=== PATIENT | female | born 1960 | race Asian ===

== ENCOUNTER → 2017-07-09 | Outpatient (CLI) | payer BC ==
[2017-07-09 10:37] LABS: BASOPHILS % 1.3 % (0.0-2.0); EOSINOPHILS % 1.9 % (0.0-5.0); HEMATOCRIT. 42.9 % (36.0-48.0); HEMOGLOBIN. 13.2 g/dL (12.0-16.0); LYMPHOCYTES % 34.5 % (20.0-50.0); MEAN CORPUSCULAR HEMOGLOBIN 19.8 pg (28.0-32.0); MEAN CORPUSCULAR VOLUME 64.3 fL (81.0-99.0); MEAN PLATELET VOLUME 7.6 fl (7.4-10.4); MONOCYTES % 7.7 % (2.0-8.0); NEUTROPHILS % 54.6 % (40.0-76.0); PLATELET 200 x1000/uL (130-400); RED BLOOD CELL COUNT 6.67 mill/uL (4.2-5.4); RED CELL DISTRIBUTION WIDTH 15.3 % (11.6-14.6)
[2017-07-09 10:43] LABS: CLARITY URINE CLEAR (CLEAR); COLOR URINE YELLOW (YELLOW); KETONES URINE NEGATIVE (NEGATIVE); LEUKOCYTE ESTERASE URINE NEGATIVE (NEGATIVE); NITRITE URINE NEGATIVE (NEGATIVE); OCCULT BLOOD URINE TRACE (NEGATIVE); PROTEIN URINE NEGATIVE (NEGATIVE); SPECIFIC GRAVITY URINE 1.013 (1.005-1.030); UROBILINOGEN URINE 0.2 E.U./dL (0.2-1.0)
[2017-07-09 11:17] LABS: CHLORIDE 106 mEq/L (98-107)
[2017-07-09 11:35] LABS: LDL CHOLESTEROL 107 mg/dL (5-100)
[2017-07-09 11:36] LABS: HDL CHOLESTEROL 94 mg/dL (40-59); T4 FREE 0.83 ng/dL (0.76-1.46)
[2017-07-09 13:32] LABS: PLATELET ESTIMATE NORMAL
== END | disposition home or self-care (01) ==
LOC: LAB 09:46
PROVIDERS: ATTEND Family Medicine
DX: I10 Essential (primary) hypertension (principal); E03.9 Hypothyroidism, unspecified; R79.89 Other specified abnormal findings of blood chemistry
CPT/HCPCS: 36415; 80053; 80061; 81003; 83036; 84439; 84443; 84481; 85025; 86376

== ENCOUNTER → 2017-09-21 | Outpatient (CLI) | payer BC | END | disposition home or self-care (01) | LOC: MAMMO 13:28 | PROVIDERS: ATTEND Family Medicine | DX: Z12.31 Encounter for screening mammogram for malignant neoplasm of breast (principal) | CPT/HCPCS: 77067 ==

== ENCOUNTER → 2017-09-24 | Outpatient (CLI) | payer BC | END | disposition home or self-care (01) | LOC: US 13:19 | PROVIDERS: ATTEND Family Medicine | DX: N28.1 Cyst of kidney, acquired (principal) | CPT/HCPCS: 76770 ==

== ENCOUNTER → 2018-06-24 | Outpatient (CLI) | payer BC | END | disposition home or self-care (01) | LOC: US 12:41 | PROVIDERS: ATTEND Physician Assistant | DX: N28.1 Cyst of kidney, acquired (principal) | CPT/HCPCS: 76770 ==

== ENCOUNTER → 2018-12-31 | Outpatient (CLI) | payer BC ==
[2018-12-31 09:41] LABS: BASOPHILS % 1.2 % (0.0-2.0); EOSINOPHILS % 4.5 % (0.0-5.0); HEMATOCRIT. 37.6 % (36.0-48.0); HEMOGLOBIN. 11.6 g/dL (12.0-16.0); LYMPHOCYTES % 33.8 % (20.0-50.0); MEAN CORPUSCULAR HEMOGLOBIN 19.8 pg (28.0-32.0); MEAN CORPUSCULAR VOLUME 64.1 fL (81.0-99.0); MEAN PLATELET VOLUME 7.7 fl (7.4-10.4); MONOCYTES % 10.7 % (2.0-8.0); NEUTROPHILS % 49.8 % (40.0-76.0); PLATELET 174 x1000/uL (130-400); RED BLOOD CELL COUNT 5.86 mill/uL (4.2-5.4); RED CELL DISTRIBUTION WIDTH 15.5 % (11.6-14.6)
[2018-12-31 10:00] LABS: CHLORIDE 109 mEq/L (98-107); CLARITY URINE CLEAR (CLEAR); COLOR URINE YELLOW (YELLOW); KETONES URINE NEGATIVE (NEGATIVE); LEUKOCYTE ESTERASE URINE NEGATIVE (NEGATIVE); NITRITE URINE NEGATIVE (NEGATIVE); OCCULT BLOOD URINE 1+ (NEGATIVE); PH URINE 6.5 (4.5-8.0); PROTEIN URINE NEGATIVE (NEGATIVE); SPECIFIC GRAVITY URINE 1.013 (1.005-1.030); UROBILINOGEN URINE 0.2 E.U./dL (0.2-1.0)
[2018-12-31 10:10] LABS: LDL CHOLESTEROL 103 mg/dL (5-100)
[2018-12-31 10:11] LABS: T4 FREE 0.78 ng/dL (0.76-1.46)
[2018-12-31 10:12] LABS: HDL CHOLESTEROL 84 mg/dL (40-59)
[2018-12-31 10:35] LABS: VITAMIN B12 SERUM 1833 pg/mL (211-911)
[2018-12-31 13:29] LABS: PLATELET ESTIMATE NORMAL
[2019-01-03 04:11] LABS: VITAMIN D 25-OH 75.5 ng/mL (30.0-100.0)
== END | disposition home or self-care (01) ==
LOC: LAB 09:02
PROVIDERS: ATTEND Family Medicine
DX: E03.9 Hypothyroidism, unspecified (principal); R53.83 Other fatigue
CPT/HCPCS: 36415; 80061; 81003; 82306; 82607; 83036; 84439; 84443; 84481; 86376

== ENCOUNTER → 2019-04-12 | Outpatient (CLI) | payer BC ==
[2019-04-12 14:53] LABS: CLARITY URINE CLEAR (CLEAR); COLOR URINE YELLOW (YELLOW); KETONES URINE NEGATIVE (NEGATIVE); LEUKOCYTE ESTERASE URINE NEGATIVE (NEGATIVE); NITRITE URINE NEGATIVE (NEGATIVE); OCCULT BLOOD URINE TRACE (NEGATIVE); PH URINE 7.5 (4.5-8.0); PROTEIN URINE NEGATIVE (NEGATIVE); SPECIFIC GRAVITY URINE 1.004 (1.005-1.030); UROBILINOGEN URINE 0.2 E.U./dL (0.2-1.0)
== END | disposition home or self-care (01) ==
LOC: RAD 14:18
PROVIDERS: ATTEND Family Medicine
DX: R31.29 Other microscopic hematuria (principal)
CPT/HCPCS: 81003

== ENCOUNTER → 2019-07-07 | Outpatient (CLI) | payer BC ==
[2019-07-07 08:12] LABS: CLARITY URINE CLEAR (CLEAR); COLOR URINE YELLOW (YELLOW); KETONES URINE NEGATIVE (NEGATIVE); LEUKOCYTE ESTERASE URINE NEGATIVE (NEGATIVE); NITRITE URINE NEGATIVE (NEGATIVE); OCCULT BLOOD URINE TRACE (NEGATIVE); PROTEIN URINE NEGATIVE (NEGATIVE); SPECIFIC GRAVITY URINE 1.006 (1.005-1.030); UROBILINOGEN URINE 0.2 E.U./dL (0.2-1.0)
[2019-07-07 08:28] LABS: BASOPHILS % 1.7 % (0.0-2.0); EOSINOPHILS % 4.1 % (0.0-5.0); HEMATOCRIT. 37.1 % (36.0-48.0); HEMOGLOBIN. 11.8 g/dL (12.0-16.0); LYMPHOCYTES % 39.5 % (20.0-50.0); MEAN CORPUSCULAR HEMOGLOBIN 20.3 pg (28.0-32.0); MEAN CORPUSCULAR VOLUME 63.9 fL (81.0-99.0); MEAN PLATELET VOLUME 7.7 fl (7.4-10.4); MONOCYTES % 9.3 % (2.0-8.0); NEUTROPHILS % 45.4 % (40.0-76.0); PLATELET 198 x1000/uL (130-400); RED BLOOD CELL COUNT 5.81 mill/uL (4.2-5.4); RED CELL DISTRIBUTION WIDTH 15.8 % (11.6-14.6)
[2019-07-07 08:49] LABS: CHLORIDE 109 mEq/L (98-107)
[2019-07-07 08:56] LABS: LDL CHOLESTEROL 102 mg/dL (5-100)
[2019-07-07 08:58] LABS: HDL CHOLESTEROL 93 mg/dL (40-59); T4 FREE 0.77 ng/dL (0.76-1.46)
[2019-07-07 09:20] LABS: VITAMIN B12 SERUM 1692 pg/mL (211-911)
[2019-07-07 14:11] LABS: PLATELET ESTIMATE NORMAL
[2019-07-08 04:06] LABS: VITAMIN D 25-OH 72.6 ng/mL (30.0-100.0)
== END | disposition home or self-care (01) ==
LOC: LAB 07:51
PROVIDERS: ATTEND Family Medicine
DX: R53.83 Other fatigue (principal); E03.9 Hypothyroidism, unspecified
CPT/HCPCS: 36415; 80053; 80061; 81003; 82306; 82607; 83036; 84439; 84443; 84481; 85025; 86376

== ENCOUNTER → 2019-11-21 | Outpatient (CLI) | payer BC | END | disposition home or self-care (01) | LOC: LAB 10:45 | PROVIDERS: ATTEND Family Medicine | DX: Z11.59 Encounter for screening for other viral diseases (principal) | CPT/HCPCS: C9803; U0003 ==

== ENCOUNTER → 2019-11-23 | Outpatient (CLI) | payer BC | END | disposition home or self-care (01) | LOC: MAMMO 10:28 | PROVIDERS: ATTEND Family Medicine | DX: Z12.31 Encounter for screening mammogram for malignant neoplasm of breast (principal) | CPT/HCPCS: 77067 ==

== ENCOUNTER → 2019-12-08 | Outpatient (CLI) | payer BC ==
[2019-12-08 09:41] LABS: T4 FREE 0.8 ng/dL (0.76-1.46)
== END | disposition home or self-care (01) ==
LOC: LAB 08:52
PROVIDERS: ATTEND Family Medicine
DX: E03.9 Hypothyroidism, unspecified (principal); R73.03 Prediabetes
CPT/HCPCS: 36415; 83036; 84439; 84443; 84481; 86376

== ENCOUNTER → 2019-12-20 | Outpatient (CLI) | payer BC | END | disposition home or self-care (01) | LOC: LAB 10:39 | PROVIDERS: ATTEND Family Medicine | DX: Z20.828 Contact with and (suspected) exposure to other viral communicable diseases (principal) | CPT/HCPCS: C9803; U0003 ==

== ENCOUNTER → 2019-12-22 | Outpatient (CLI) | payer BC | END | disposition home or self-care (01) | LOC: US 10:45 | PROVIDERS: ATTEND Family Medicine | DX: E03.9 Hypothyroidism, unspecified (principal) | CPT/HCPCS: 76536 ==

== ENCOUNTER → 2020-04-29 | Outpatient (CLI) | payer BC ==
[2020-04-29 10:11] LABS: CLARITY URINE CLEAR (CLEAR); COLOR URINE YELLOW (YELLOW); KETONES URINE NEGATIVE (NEGATIVE); LEUKOCYTE ESTERASE URINE NEGATIVE (NEGATIVE); NITRITE URINE NEGATIVE (NEGATIVE); OCCULT BLOOD URINE TRACE (NEGATIVE); PH URINE 5.5 (4.5-8.0); PROTEIN URINE NEGATIVE (NEGATIVE); SPECIFIC GRAVITY URINE 1.014 (1.005-1.030); UROBILINOGEN URINE 0.2 E.U./dL (0.2-1.0)
[2020-04-29 10:15] LABS: BASOPHILS % 1.4 % (0.0-2.0); EOSINOPHILS % 3.1 % (0.0-5.0); HEMATOCRIT. 37.7 % (36.0-48.0); HEMOGLOBIN. 11.6 g/dL (12.0-16.0); MEAN CORPUSCULAR HEMOGLOBIN 19.6 pg (28.0-32.0); MEAN CORPUSCULAR VOLUME 63.5 fL (81.0-99.0); MEAN PLATELET VOLUME 7.8 fl (7.4-10.4); MONOCYTES % 7.2 % (2.0-8.0); NEUTROPHILS % 47.3 % (40.0-76.0); PLATELET 195 x1000/uL (130-400); RED BLOOD CELL COUNT 5.94 mill/uL (4.2-5.4); RED CELL DISTRIBUTION WIDTH 15.2 % (11.6-14.6)
[2020-04-29 10:19] LABS: CHLORIDE 111 mEq/L (98-107)
[2020-04-29 10:29] LABS: LDL CHOLESTEROL 98 mg/dL (5-100)
[2020-04-29 10:30] LABS: HDL CHOLESTEROL 104 mg/dL (40-59)
[2020-04-29 11:46] LABS: PLATELET ESTIMATE NORMAL
== END | disposition home or self-care (01) ==
LOC: LAB 09:28
PROVIDERS: ATTEND Family Medicine
DX: I10 Essential (primary) hypertension (principal); K21.9 Gastro-esophageal reflux disease without esophagitis; E03.9 Hypothyroidism, unspecified
CPT/HCPCS: 36415; 80053; 80061; 81003; 83036; 84436; 84443; 84481; 85025

== ENCOUNTER → 2020-06-21 | Outpatient (CLI) | payer BC ==
[~2020-06-21] MED LIST: ALBUTEROL (0.083%) 2.5MG/3ML NEB ONE
== END | disposition home or self-care (01) ==
LOC: US 10:51
PROVIDERS: ATTEND Family Medicine
DX: N28.1 Cyst of kidney, acquired (principal); K76.89 Other specified diseases of liver; K21.00 Gastro-esophageal reflux disease with esophagitis, without bleeding; R73.03 Prediabetes; E03.9 Hypothyroidism, unspecified; F43.0 Acute stress reaction; R06.02 Shortness of breath; Z68.21 Body mass index [BMI] 21.0-21.9, adult
CPT/HCPCS: 76770; 94060; 94727; 94729

== ENCOUNTER → 2020-11-22 | Outpatient (CLI) | payer BC ==
[2020-11-22 07:58] LABS: CLARITY URINE CLEAR (CLEAR); COLOR URINE YELLOW (YELLOW); KETONES URINE NEGATIVE (NEGATIVE); LEUKOCYTE ESTERASE URINE NEGATIVE (NEGATIVE); NITRITE URINE NEGATIVE (NEGATIVE); OCCULT BLOOD URINE TRACE (NEGATIVE); PH URINE 6.5 (4.5-8.0); PROTEIN URINE NEGATIVE (NEGATIVE); SPECIFIC GRAVITY URINE 1.006 (1.005-1.030); UROBILINOGEN URINE 0.2 E.U./dL (0.2-1.0)
[2020-11-22 08:06] LABS: BASOPHILS % 0.5 % (0.0-2.0); EOSINOPHILS % 3.9 % (0.0-5.0); HEMATOCRIT. 38.2 % (36.0-48.0); HEMOGLOBIN. 11.9 g/dL (12.0-16.0); LYMPHOCYTES % 35.2 % (20.0-50.0); MEAN CORPUSCULAR HEMOGLOBIN 19.8 pg (28.0-32.0); MEAN CORPUSCULAR VOLUME 63.5 fL (81.0-99.0); MEAN PLATELET VOLUME 8.5 fl (7.4-10.4); MONOCYTES % 10.2 % (2.0-8.0); NEUTROPHILS % 50.2 % (40.0-76.0); PLATELET 216 x1000/uL (130-400); RED BLOOD CELL COUNT 6.01 mill/uL (4.2-5.4); RED CELL DISTRIBUTION WIDTH 15.4 % (11.6-14.6)
[2020-11-22 08:18] LABS: CHLORIDE 112 mEq/L (98-107)
[2020-11-22 08:26] LABS: LDL CHOLESTEROL 101 mg/dL (5-100)
[2020-11-22 08:28] LABS: HDL CHOLESTEROL 96 mg/dL (40-59)
[2020-11-22 14:22] LABS: PLATELET ESTIMATE NORMAL
[2020-11-23 09:06] LABS: VITAMIN D 25-OH 73.9 ng/mL (30.0-100.0)
== END | disposition home or self-care (01) ==
LOC: MAMMO 07:16
PROVIDERS: ATTEND Family Medicine
DX: Z12.31 Encounter for screening mammogram for malignant neoplasm of breast (principal); I10 Essential (primary) hypertension; K21.9 Gastro-esophageal reflux disease without esophagitis; E03.9 Hypothyroidism, unspecified
CPT/HCPCS: 36415; 77067; 80053; 80061; 81003; 82306; 83036; 84436; 84443; 84481; 85025

== ENCOUNTER → 2021-01-17 | Outpatient (CLI) | payer BC ==
[2021-01-17 09:28] LABS: BASOPHILS % 1.3 % (0.0-2.0); HEMATOCRIT. 38.5 % (36.0-48.0); HEMOGLOBIN. 11.8 g/dL (12.0-16.0); LYMPHOCYTES % 29.6 % (20.0-50.0); MEAN CORPUSCULAR HEMOGLOBIN 19.8 pg (28.0-32.0); MEAN CORPUSCULAR VOLUME 64.7 fL (81.0-99.0); MEAN PLATELET VOLUME 7.3 fl (7.4-10.4); MONOCYTES % 8.7 % (2.0-8.0); NEUTROPHILS % 57.4 % (40.0-76.0); PLATELET 199 x1000/uL (130-400); RED BLOOD CELL COUNT 5.95 mill/uL (4.2-5.4); RED CELL DISTRIBUTION WIDTH 15.6 % (11.6-14.6)
[2021-01-17 09:51] LABS: CHLORIDE 110 mEq/L (98-107)
[2021-01-17 09:59] LABS: LDL CHOLESTEROL 115 mg/dL (5-100)
[2021-01-17 10:00] LABS: HDL CHOLESTEROL 86 mg/dL (40-59)
[2021-01-17 10:01] LABS: T4 FREE 0.87 ng/dL (0.76-1.46)
[2021-01-17 18:23] LABS: PLATELET ESTIMATE NORMAL
== END | disposition home or self-care (01) ==
LOC: LAB 09:07
PROVIDERS: ATTEND Specialist
DX: I10 Essential (primary) hypertension (principal)
CPT/HCPCS: 36415; 80053; 80061; 83036; 84439; 84443; 85025

== ENCOUNTER → 2021-02-06 | Outpatient (CLI) | payer BC | END | disposition home or self-care (01) | LOC: RAD 13:06 | PROVIDERS: ATTEND Internal Medicine Pulmonary Disease | DX: R06.02 Shortness of breath (principal) | CPT/HCPCS: 71046 ==

== ENCOUNTER → 2021-04-14 | Outpatient (CLI) | payer BC ==
[2021-04-14 10:10] LABS: CHLORIDE 112 mEq/L (98-107)
[2021-04-14 10:18] LABS: HDL CHOLESTEROL 98 mg/dL (40-59); LDL CHOLESTEROL 86 mg/dL (5-100)
[2021-04-14 11:05] LABS: VITAMIN B12 SERUM 1570 pg/mL (211-911)
== END | disposition home or self-care (01) ==
LOC: LAB 08:48
PROVIDERS: ATTEND Family Medicine
DX: E78.5 Hyperlipidemia, unspecified (principal); R73.03 Prediabetes; E55.9 Vitamin D deficiency, unspecified
CPT/HCPCS: 36415; 80053; 80061; 82306; 82607; 83036

== ENCOUNTER → 2021-08-01 | Outpatient (CLI) | payer BC ==
[2021-08-01 09:09] LABS: BASOPHILS % 1.2 % (0.0-2.0); EOSINOPHILS % 2.5 % (0.0-5.0); HEMATOCRIT. 38.2 % (36.0-48.0); HEMOGLOBIN. 11.8 g/dL (12.0-16.0); LYMPHOCYTES % 35.7 % (20.0-50.0); MEAN CORPUSCULAR HEMOGLOBIN 20.2 pg (28.0-32.0); MEAN CORPUSCULAR VOLUME 65.4 fL (81.0-99.0); MEAN PLATELET VOLUME 7.4 fl (7.4-10.4); MONOCYTES % 8.9 % (2.0-8.0); NEUTROPHILS % 51.7 % (40.0-76.0); PLATELET 205 x1000/uL (130-400); RED BLOOD CELL COUNT 5.83 mill/uL (4.2-5.4); RED CELL DISTRIBUTION WIDTH 14.9 % (11.6-14.6)
[2021-08-01 09:14] LABS: CHLORIDE 112 mEq/L (98-107)
[2021-08-01 09:29] LABS: HDL CHOLESTEROL 97 mg/dL (40-59); LDL CHOLESTEROL 116 mg/dL (5-100); T4 FREE 0.98 ng/dL (0.76-1.46)
[2021-08-01 09:56] LABS: VITAMIN B12 SERUM 1870 pg/mL (211-911)
[2021-08-01 10:32] LABS: PLATELET ESTIMATE NORMAL
[2021-08-02 05:10] LABS: THYROID PEROXIDASE ANTIBODY < 8 IU/mL (0-34)
== END | disposition home or self-care (01) ==
LOC: LAB 08:27
PROVIDERS: ATTEND Family Medicine
DX: E03.9 Hypothyroidism, unspecified (principal); K21.9 Gastro-esophageal reflux disease without esophagitis
CPT/HCPCS: 36415; 80053; 80061; 82306; 82607; 83036; 84439; 84443; 84481; 85025; 86376

== ENCOUNTER → 2022-01-06 | Outpatient (CLI) | payer BC ==
[2022-01-06 09:40] LABS: CLARITY URINE CLEAR (CLEAR); COLOR URINE YELLOW (YELLOW); KETONES URINE NEGATIVE (NEGATIVE); LEUKOCYTE ESTERASE URINE NEGATIVE (NEGATIVE); NITRITE URINE NEGATIVE (NEGATIVE); OCCULT BLOOD URINE NEGATIVE (NEGATIVE); PH URINE 6.5 (4.5-8.0); PROTEIN URINE NEGATIVE (NEGATIVE); SPECIFIC GRAVITY URINE 1.008 (1.005-1.030); UROBILINOGEN URINE 0.2 E.U./dL (0.2-1.0)
[2022-01-06 09:48] LABS: BASOPHILS % 0.8 % (0.0-2.0); EOSINOPHILS % 1.4 % (0.0-5.0); HEMATOCRIT. 40.3 % (36.0-48.0); HEMOGLOBIN. 12.3 g/dL (12.0-16.0); LYMPHOCYTES % 33.2 % (20.0-50.0); MEAN CORPUSCULAR HEMOGLOBIN 19.8 pg (28.0-32.0); MEAN CORPUSCULAR VOLUME 64.7 fL (81.0-99.0); MEAN PLATELET VOLUME 7.5 fl (7.4-10.4); MONOCYTES % 7.8 % (2.0-8.0); NEUTROPHILS % 56.8 % (40.0-76.0); PLATELET 215 x1000/uL (130-400); RED BLOOD CELL COUNT 6.22 mill/uL (4.2-5.4); RED CELL DISTRIBUTION WIDTH 15.5 % (11.6-14.6)
[2022-01-06 10:08] LABS: PLATELET ESTIMATE NORMAL
[2022-01-06 10:35] LABS: CHLORIDE 108 mEq/L (98-107)
[2022-01-06 10:50] LABS: HDL CHOLESTEROL 84 mg/dL (40-59); LDL CHOLESTEROL 119 mg/dL (5-100)
[2022-01-07 04:08] LABS: VITAMIN D 25-OH 86.7 ng/mL (30.0-100.0)
== END | disposition home or self-care (01) ==
LOC: LAB 08:10
PROVIDERS: ATTEND Family Medicine
DX: E03.9 Hypothyroidism, unspecified (principal); R73.03 Prediabetes
CPT/HCPCS: 36415; 80053; 80061; 81003; 82306; 83036; 84436; 84443; 84481; 85025

== ENCOUNTER → 2022-02-13 | Outpatient (CLI) | payer BC | END | disposition home or self-care (01) | LOC: MAMMO 10:10 | PROVIDERS: ATTEND Family Medicine | DX: Z12.31 Encounter for screening mammogram for malignant neoplasm of breast (principal) | CPT/HCPCS: 77067 ==

== ENCOUNTER → 2022-03-17 | Outpatient (CLI) | payer BC ==
[2022-03-17 15:22] LABS: CHLORIDE 110 mEq/L (98-107)
[2022-03-17 15:37] LABS: T4 FREE 0.97 ng/dL (0.76-1.46)
== END | disposition home or self-care (01) ==
LOC: LAB 14:26
PROVIDERS: ATTEND Family Medicine
DX: E03.9 Hypothyroidism, unspecified (principal)
CPT/HCPCS: 36415; 80053; 84439; 84443; 84481

== ENCOUNTER → 2022-09-28 | Outpatient (CLI) | payer BC ==
[2022-09-28 13:55] LABS: CLARITY URINE CLEAR (CLEAR); COLOR URINE YELLOW (YELLOW); KETONES URINE NEGATIVE (NEGATIVE); LEUKOCYTE ESTERASE URINE NEGATIVE (NEGATIVE); NITRITE URINE NEGATIVE (NEGATIVE); OCCULT BLOOD URINE TRACE (NEGATIVE); PROTEIN URINE NEGATIVE (NEGATIVE); SPECIFIC GRAVITY URINE 1.003 (1.005-1.030); UROBILINOGEN URINE 0.2 E.U./dL (0.2-1.0)
[2022-09-28 14:14] LABS: CHLORIDE 110 mEq/L (98-107)
[2022-09-28 14:30] LABS: HDL CHOLESTEROL 96 mg/dL (40-59); LDL CHOLESTEROL 100 mg/dL (5-100); T4 FREE 1.06 ng/dL (0.76-1.46)
== END | disposition home or self-care (01) ==
LOC: LAB 13:31
PROVIDERS: ATTEND Family Medicine
DX: Z00.00 Encounter for general adult medical examination without abnormal findings (principal); E03.9 Hypothyroidism, unspecified
CPT/HCPCS: 36415; 80053; 80061; 81003; 82306; 83036; 84439; 84443; 84481

== ENCOUNTER → 2023-02-16 | Outpatient (CLI) | payer BC | END | disposition home or self-care (01) | LOC: MAMMO 13:58 | PROVIDERS: ATTEND Family Medicine | DX: Z12.31 Encounter for screening mammogram for malignant neoplasm of breast (principal) | CPT/HCPCS: 77067 ==

== ENCOUNTER → 2023-02-26 | Outpatient (CLI) | payer BC ==
[2023-02-26 09:16] LABS: BASOPHILS % 0.6 % (0.0-2.0); EOSINOPHILS % 2.9 % (0.0-5.0); HEMATOCRIT. 38.9 % (36.0-48.0); HEMOGLOBIN. 12.3 g/dL (12.0-16.0); LYMPHOCYTES % 35.8 % (20.0-50.0); MEAN CORPUSCULAR HEMOGLOBIN 20.3 pg (28.0-32.0); MEAN CORPUSCULAR HGB CONC 31.7 g/dL (31.0-37.0); MEAN CORPUSCULAR VOLUME 64.2 fL (81.0-99.0); MEAN PLATELET VOLUME 7.7 fl (7.4-10.4); MONOCYTES % 8.4 % (2.0-8.0); NEUTROPHILS % 52.3 % (40.0-76.0); PLATELET 192 x1000/uL (130-400); RED BLOOD CELL COUNT 6.07 mill/uL (4.2-5.4); RED CELL DISTRIBUTION WIDTH 15.4 % (11.6-14.6); WHITE BLOOD COUNT 5.7 x1000/uL (4.5-11.0)
[2023-02-26 09:18] LABS: ADD RBC MORPHOLOGY YES; DIFFERENTIAL COMMENT 1
[2023-02-26 09:21] LABS: CLARITY URINE CLEAR (CLEAR); COLOR URINE YELLOW (YELLOW); PH URINE 6.5 (4.5-8.0)
[2023-02-26 09:22] LABS: GLUCOSE URINE NEGATIVE (NEGATIVE); KETONES URINE NEGATIVE (NEGATIVE); LEUKOCYTE ESTERASE URINE TRACE (NEGATIVE); NITRITE URINE NEGATIVE (NEGATIVE); OCCULT BLOOD URINE TRACE (NEGATIVE); PROTEIN URINE NEGATIVE (NEGATIVE); UROBILINOGEN URINE 0.2 E.U./dL (0.2-1.0)
[2023-02-26 09:31] LABS: BACTERIA URINE FEW; RBC URINE 0-2 /hpf (0-2); SQUAMOUS EPITHELIAL CELL URINE NONE SEEN /lpf (RARE/1+); WBC URINE 0-2 /hpf (0-2); YEAST URINE NONE SEEN
[2023-02-26 09:57] LABS: ALANINE AMINOTRANSFERASE 35 IU/L (10-49); ALBUMIN 4.1 g/dL (3.2-4.8); ASPARTATE AMINOTRANSFERASE 26 IU/L (<34); CALCIUM 9.3 mg/dL (8.7-10.4); CARBON DIOXIDE 28 mEq/L (21-32); CHLORIDE 107 mEq/L (98-107); CHOLESTEROL 220 mg/dL (<200); CREATININE 0.8 mg/dL (0.6-1.0); GLUCOSE 103 mg/dL (70-105); HDL CHOLESTEROL 80 mg/dL (>65); LDL CHOLESTEROL 136 mg/dL (5-100); PROTEIN TOTAL 7.4 g/dL (6.0-8.3); SODIUM 143 mEq/L (136-145); T4 FREE 1.11 ng/dL (0.89-1.76); TRIGLYCERIDE 99 mg/dL (0-150); UREA NITROGEN BLOOD 13 mg/dL (9-23)
[2023-02-26 10:24] LABS: FOLIC ACID (FOLATE) SERUM > 20.00 ng/mL (>5.38); VITAMIN B12 SERUM 1410 pg/mL (211-911)
[2023-02-27 14:19] LABS: PLATELET ESTIMATE NORMAL
[2023-02-27 14:20] LABS: ANISOCYTOSIS 1+; HYPOCHROMASIA 1+; MICROCYTOSIS 4+
== END | disposition home or self-care (01) ==
LOC: LAB 08:48
PROVIDERS: ATTEND Family Medicine
DX: Z00.00 Encounter for general adult medical examination without abnormal findings (principal); E03.9 Hypothyroidism, unspecified
CPT/HCPCS: 36415; 80053; 80061; 81003; 82607; 82746; 83036; 84439; 84481; 85025

== ENCOUNTER → 2023-03-25 | Outpatient (CLI) | payer BC ==
[2023-03-25 17:21] LABS: T4 FREE 1.14 ng/dL (0.89-1.76); THYROID STIMULATING HORMONE 0.44 uIU/mL (0.55-4.78)
[2023-03-27 08:07] LABS: T4 THYROXINE 7.9 ug/dL (4.5-12.0)
== END | disposition home or self-care (01) ==
LOC: LAB 16:11
PROVIDERS: ATTEND Internal Medicine
DX: Z00.00 Encounter for general adult medical examination without abnormal findings (principal)
CPT/HCPCS: 36415; 84436; 84439; 84443; 84480; 86376

== ENCOUNTER → 2023-08-12 | Outpatient (CLI) | payer BC ==
[2023-08-12 15:05] LABS: CLARITY URINE CLEAR (CLEAR); COLOR URINE YELLOW (YELLOW); GLUCOSE URINE NEGATIVE (NEGATIVE); KETONES URINE NEGATIVE (NEGATIVE); LEUKOCYTE ESTERASE URINE NEGATIVE (NEGATIVE); NITRITE URINE NEGATIVE (NEGATIVE); OCCULT BLOOD URINE NEGATIVE (NEGATIVE); PH URINE 6.5 (4.5-8.0); PROTEIN URINE NEGATIVE (NEGATIVE); SPECIFIC GRAVITY URINE 1.002 (1.005-1.030); UROBILINOGEN URINE 0.2 E.U./dL (0.2-1.0)
[2023-08-12 15:06] LABS: BASOPHILS % 1.2 % (0.0-2.0); EOSINOPHILS % 2.2 % (0.0-5.0); HEMATOCRIT. 39.1 % (36.0-48.0); HEMOGLOBIN. 12.4 g/dL (12.0-16.0); MEAN CORPUSCULAR HEMOGLOBIN 20.5 pg (28.0-32.0); MEAN CORPUSCULAR HGB CONC 31.8 g/dL (31.0-37.0); MEAN CORPUSCULAR VOLUME 64.4 fL (81.0-99.0); MEAN PLATELET VOLUME 7.7 fl (7.4-10.4); MONOCYTES % 9.3 % (2.0-8.0); NEUTROPHILS % 52.3 % (40.0-76.0); PLATELET 197 x1000/uL (130-400); RED BLOOD CELL COUNT 6.08 mill/uL (4.2-5.4); RED CELL DISTRIBUTION WIDTH 15.6 % (11.6-14.6); WHITE BLOOD COUNT 6.8 x1000/uL (4.5-11.0)
[2023-08-12 15:07] LABS: ADD RBC MORPHOLOGY YES; DIFFERENTIAL COMMENT 1
[2023-08-12 15:10] LABS: CHLORIDE 108 mEq/L (98-107); POTASSIUM 4.2 mEq/L (3.5-5.1); SODIUM 143 mEq/L (136-145)
[2023-08-12 15:11] LABS: CALCIUM 9.7 mg/dL (8.7-10.4); CARBON DIOXIDE 27 mEq/L (21-32)
[2023-08-12 15:16] LABS: CREATININE 0.9 mg/dL (0.6-1.0); GLUCOSE 102 mg/dL (70-105); IRON 120 ug/dL (50-170); TRIGLYCERIDE 76 mg/dL (0-150); URIC ACID 5.4 mg/dL (3.1-7.8)
[2023-08-12 15:17] LABS: C REACTIVE PROTEIN HIGH SENS 1.08 mg/l (<1.00); LDL CHOLESTEROL 131 mg/dL (5-100); UREA NITROGEN BLOOD 12 mg/dL (9-23)
[2023-08-12 15:18] LABS: ALANINE AMINOTRANSFERASE 18 IU/L (10-49); ALBUMIN 4.3 g/dL (3.2-4.8); ASPARTATE AMINOTRANSFERASE 25 IU/L (<34); BILIRUBIN TOTAL 0.7 mg/dL (0.1-1.0); CHOLESTEROL 215 mg/dL (<200); HDL CHOLESTEROL 80 mg/dL (>65); PHOSPHORUS 3.7 mg/dL (2.5-4.9)
[2023-08-12 15:19] LABS: PROTEIN TOTAL 7.3 g/dL (6.0-8.3); TOTAL IRON BINDING CAPACITY 320 ug/dl (250-425)
[2023-08-12 15:22] LABS: THYROID STIMULATING HORMONE 0.63 uIU/mL (0.55-4.78)
[2023-08-12 15:33] LABS: HEPATITIS B SURFACE ANTIGEN NEGATIVE (Negative)
[2023-08-12 15:53] LABS: HEPATITIS A AB IGM NEGATIVE (Negative)
[2023-08-12 15:54] LABS: HEPATITIS B CORE AB IGM NEGATIVE (Negative)
[2023-08-12 15:55] LABS: HEPATITIS C AB NON REACTIVE (Neg) (Negative)
[2023-08-12 16:00] LABS: ERYTHROCYTE SEDIMENTATION RATE 4 mm/hr (0-30)
[2023-08-12 17:27] LABS: PLATELET ESTIMATE NORMAL
[2023-08-12 17:28] LABS: HYPOCHROMASIA 2+; MICROCYTOSIS 3+
[2023-08-14 09:09] LABS: VITAMIN D 25-OH 55.7 ng/mL (30.0-100.0)
[2023-08-14 13:07] LABS: *CREATININE RANDOM URINE 9.2 mg/dL (Not Estab.); MICROALBUMIN RANDOM URINE <3.0 ug/mL (Not Estab.)
== END | disposition home or self-care (01) ==
LOC: LAB 13:42
PROVIDERS: ATTEND Internal Medicine
DX: Z00.00 Encounter for general adult medical examination without abnormal findings (principal)
CPT/HCPCS: 36415; 80053; 80061; 81003; 82043; 82306; 82570; 83540; 83550; 83735; 84100; 84443; 84550; 85025; 85651; 86003; 86141; 86705; 86709; 87340

== ENCOUNTER → 2023-12-16 | Outpatient (CLI) | payer BC ==
[2023-12-16 14:11] LABS: CLARITY URINE CLEAR (CLEAR); COLOR URINE YELLOW (YELLOW); GLUCOSE URINE NEGATIVE (NEGATIVE); KETONES URINE NEGATIVE (NEGATIVE); LEUKOCYTE ESTERASE URINE NEGATIVE (NEGATIVE); NITRITE URINE NEGATIVE (NEGATIVE); OCCULT BLOOD URINE NEGATIVE (NEGATIVE); PH URINE 6.5 (4.5-8.0); PROTEIN URINE NEGATIVE (NEGATIVE); SPECIFIC GRAVITY URINE 1.002 (1.005-1.030); UROBILINOGEN URINE 0.2 E.U./dL (0.2-1.0)
[2023-12-16 14:21] LABS: CARBON DIOXIDE 26 mEq/L (21-32); CHLORIDE 108 mEq/L (98-107); POTASSIUM 3.8 mEq/L (3.5-5.1); SODIUM 140 mEq/L (136-145)
[2023-12-16 14:22] LABS: CALCIUM 9.7 mg/dL (8.7-10.4)
[2023-12-16 14:26] LABS: IRON 151 ug/dL (50-170)
[2023-12-16 14:27] LABS: ALANINE AMINOTRANSFERASE 22 IU/L (10-49); GLUCOSE 98 mg/dL (70-105); TRIGLYCERIDE 52 mg/dL (0-150); UREA NITROGEN BLOOD 10 mg/dL (9-23)
[2023-12-16 14:28] LABS: C REACTIVE PROTEIN HIGH SENS 1.11 mg/l (<1.00); LACTATE DEHYDROGENASE 184 IU/L (120-246); LDL CHOLESTEROL 130 mg/dL (5-100)
[2023-12-16 14:29] LABS: ALBUMIN 4.6 g/dL (3.2-4.8); ASPARTATE AMINOTRANSFERASE 30 IU/L (<34); CHOLESTEROL 234 mg/dL (<200); HDL CHOLESTEROL 90 mg/dL (>65); PHOSPHORUS 3.7 mg/dL (2.5-4.9); TOTAL IRON BINDING CAPACITY 266 ug/dl (250-425)
[2023-12-16 14:30] LABS: FOLIC ACID (FOLATE) SERUM > 20.00 ng/mL (>5.38); PROTEIN TOTAL 7.8 g/dL (6.0-8.3)
[2023-12-16 14:31] LABS: TRIOIODOTHYRONINE TOTAL 0.69 ng/ml (0.60-1.81)
[2023-12-16 14:32] LABS: THYROID STIMULATING HORMONE 0.67 uIU/mL (0.55-4.78)
[2023-12-16 14:38] LABS: BASOPHILS % 0.5 % (0.0-2.0); EOSINOPHILS % 1.2 % (0.0-5.0); LYMPHOCYTES % 33.1 % (20.0-50.0); MEAN CORPUSCULAR HEMOGLOBIN 20.3 pg (28.0-32.0); MEAN CORPUSCULAR HGB CONC 30.9 g/dL (31.0-37.0); MEAN CORPUSCULAR VOLUME 65.6 fL (81.0-99.0); MEAN PLATELET VOLUME 8.5 fl (7.4-10.4); MONOCYTES % 9.3 % (2.0-8.0); NEUTROPHILS % 55.9 % (40.0-76.0); PLATELET 246 x1000/uL (130-400); RED BLOOD CELL COUNT 5.95 mill/uL (4.2-5.4); RED CELL DISTRIBUTION WIDTH 15.7 % (11.6-14.6); WHITE BLOOD COUNT 5.8 x1000/uL (4.5-11.0)
[2023-12-16 14:43] LABS: HEPATITIS B SURFACE ANTIGEN NEGATIVE (Negative)
[2023-12-16 14:48] LABS: ADD RBC MORPHOLOGY YES; DIFFERENTIAL COMMENT 1
[2023-12-16 14:59] LABS: ERYTHROCYTE SEDIMENTATION RATE 4 mm/hr (0-30)
[2023-12-16 15:03] LABS: HEPATITIS A AB IGM NEGATIVE (Negative)
[2023-12-16 15:04] LABS: HEPATITIS B CORE AB IGM NEGATIVE (Negative); HEPATITIS C AB NON REACTIVE (Neg) (Negative)
[2023-12-16 20:04] LABS: PLATELET ESTIMATE NORMAL
[2023-12-18 09:07] LABS: ESTRADIOL < 5.0 pg/mL (0.0-54.7); FOLICLE STIMULATING HORMONE 65.6 mIU/mL (25.8-134.8); LUTEINIZING HORMONE 28.1 mIU/mL (7.7-58.5); T4 THYROXINE 7.5 ug/dL (4.5-12.0)
[2023-12-18 13:11] LABS: VITAMIN D 25-OH 49.4 ng/mL (30.0-100.0)
== END | disposition home or self-care (01) ==
LOC: LAB 13:35
PROVIDERS: ATTEND Internal Medicine
DX: Z00.00 Encounter for general adult medical examination without abnormal findings (principal); D64.9 Anemia, unspecified; N39.0 Urinary tract infection, site not specified; I10 Essential (primary) hypertension; E11.9 Type 2 diabetes mellitus without complications; E55.9 Vitamin D deficiency, unspecified; R10.9 Unspecified abdominal pain; Z79.891 Long term (current) use of opiate analgesic; D68.9 Coagulation defect, unspecified; R94.6 Abnormal results of thyroid function studies
CPT/HCPCS: 36415; 80053; 80061; 81003; 82306; 82670; 82746; 83001; 83002; 83036; 83540; 83550; 83615; 84100; 84403; 84436; 84439; 84443; 84480; 84550; 85025; 85651; 86141; 86705; 86709; 87340

== ENCOUNTER → 2024-02-22 | Outpatient (CLI) | payer BC | END | disposition home or self-care (01) | LOC: MAMMO 13:19 | PROVIDERS: ATTEND Internal Medicine | DX: Z12.31 Encounter for screening mammogram for malignant neoplasm of breast (principal) | CPT/HCPCS: 77063; 77067 ==

== ENCOUNTER → 2024-06-22 | Outpatient (CLI) | payer BC ==
[2024-06-22 14:49] LABS: CLARITY URINE CLEAR (CLEAR); COLOR URINE YELLOW (YELLOW); GLUCOSE URINE NEGATIVE (NEGATIVE); KETONES URINE NEGATIVE (NEGATIVE); LEUKOCYTE ESTERASE URINE NEGATIVE (NEGATIVE); NITRITE URINE NEGATIVE (NEGATIVE); OCCULT BLOOD URINE TRACE (NEGATIVE); PH URINE 5.5 (4.5-8.0); PROTEIN URINE NEGATIVE (NEGATIVE); SPECIFIC GRAVITY URINE 1.012 (1.005-1.030); UROBILINOGEN URINE 0.2 E.U./dL (0.2-1.0)
[2024-06-22 14:49] LABS: HEMATOCRIT. 37.4 % (36.0-48.0); HEMOGLOBIN. 11.3 g/dL (12.0-16.0); MEAN CORPUSCULAR HEMOGLOBIN 19.7 pg (28.0-32.0); MEAN CORPUSCULAR HGB CONC 30.2 g/dL (31.0-37.0); MEAN CORPUSCULAR VOLUME 65.1 fL (81.0-99.0); MEAN PLATELET VOLUME 8.8 fl (7.4-10.4); PLATELET 214 x1000/uL (130-400); RED BLOOD CELL COUNT 5.74 mill/uL (4.2-5.4); RED CELL DISTRIBUTION WIDTH 15.7 % (11.6-14.6); WHITE BLOOD COUNT 5.8 x1000/uL (4.5-11.0)
[2024-06-22 14:56] LABS: CHLORIDE 110 mEq/L (98-107); POTASSIUM 3.9 mEq/L (3.5-5.1); SODIUM 143 mEq/L (136-145)
[2024-06-22 14:57] LABS: CALCIUM 9.2 mg/dL (8.7-10.4); CARBON DIOXIDE 26 mEq/L (21-32)
[2024-06-22 15:01] LABS: IRON 109 ug/dL (50-170)
[2024-06-22 15:02] LABS: CREATININE 0.9 mg/dL (0.6-1.0); GLUCOSE 99 mg/dL (70-105); TRIGLYCERIDE 74 mg/dL (0-150); UREA NITROGEN BLOOD 16 mg/dL (9-23); URIC ACID 5.2 mg/dL (3.1-7.8)
[2024-06-22 15:03] LABS: LDL CHOLESTEROL 116 mg/dL (5-100)
[2024-06-22 15:04] LABS: ALANINE AMINOTRANSFERASE 22 IU/L (10-49); ALBUMIN 4.1 g/dL (3.2-4.8); ASPARTATE AMINOTRANSFERASE 25 IU/L (<34); BILIRUBIN DIRECT 0.1 mg/dL (<=3.0); BILIRUBIN TOTAL 0.7 mg/dL (0.1-1.0); CHOLESTEROL 216 mg/dL (<200); HDL CHOLESTEROL 88 mg/dL (>65); PHOSPHORUS 3.4 mg/dL (2.5-4.9); TOTAL IRON BINDING CAPACITY 312 ug/dl (250-425)
[2024-06-22 15:05] LABS: PROTEIN TOTAL 7.5 g/dL (6.0-8.3)
[2024-06-22 15:07] LABS: DIFFERENTIAL COMMENT 1; THYROID STIMULATING HORMONE 0.73 uIU/mL (0.55-4.78)
[2024-06-22 15:22] LABS: BACTERIA URINE FEW; RBC URINE 0-2 /hpf (0-2); SQUAMOUS EPITHELIAL CELL URINE NONE SEEN /lpf (RARE/1+); WBC URINE 0-2 /hpf (0-2); YEAST URINE NONE SEEN
[2024-06-22 15:30] LABS: ERYTHROCYTE SEDIMENTATION RATE 6 mm/hr (0-30)
[2024-06-22 17:00] LABS: HEPATITIS B SURFACE ANTIGEN NEGATIVE (Negative)
[2024-06-22 17:21] LABS: HEPATITIS B CORE AB IGM NEGATIVE (Negative)
[2024-06-22 17:23] LABS: HEPATITIS A AB IGM NEGATIVE (Negative)
[2024-06-22 17:24] LABS: HEPATITIS C AB NON REACTIVE (Neg) (Negative)
[2024-06-22 20:50] LABS: NUCLEATED RED BLOOD CELLS 1 /100 WBC; PLATELET ESTIMATE NORMAL
[2024-06-22 20:51] LABS: MICROCYTOSIS 2+
[2024-06-23 09:12] LABS: *T3 UPTAKE 24 % (24-39); ESTRADIOL < 5.0 pg/mL (0.0-54.7); FOLICLE STIMULATING HORMONE 64.4 mIU/mL (25.8-134.8); LUTEINIZING HORMONE 28.2 mIU/mL (7.7-58.5); PROGESTERONE <0.1 ng/mL (.); TRANSFERRIN 269 mg/dL (192-364)
[2024-06-23 13:10] LABS: VITAMIN D 25-OH 52.2 ng/mL (30.0-100.0)
== END | disposition home or self-care (01) ==
LOC: LAB 13:25
DX: S23.123 Dislocation of T3/T4 thoracic vertebra (principal); I10 Essential (primary) hypertension; E55.9 Vitamin D deficiency, unspecified; E78.00 Pure hypercholesterolemia, unspecified; N39.0 Urinary tract infection, site not specified; B96.81 Helicobacter pylori [H. pylori] as the cause of diseases classified elsewhere; E28.0 Estrogen excess; E28.8 Other ovarian dysfunction; E27.0 Other adrenocortical overactivity; R94.6 Abnormal results of thyroid function studies; R89.1 Abnormal level of hormones in specimens from other organs, systems and tissues; D68.9 Coagulation defect, unspecified; R60.9 Edema, unspecified; R10.9 Unspecified abdominal pain; Z00.00 Encounter for general adult medical examination without abnormal findings; Z79.891 Long term (current) use of opiate analgesic; R94.30 Abnormal result of cardiovascular function study, unspecified; X58.XXXA Exposure to other specified factors, initial encounter; Y93.89 Activity, other specified; Y92.89 Other specified places as the place of occurrence of the external cause; Y99.8 Other external cause status
CPT/HCPCS: 36415; 80053; 80061; 80076; 81003; 82024; 82306; 82533; 82670; 83001; 83002; 83036; 83540; 83550; 84100; 84144; 84403; 84443; 84466; 84479; 84550; 85025; 85651; 86140; 86705; 86706; 86709; 87340

== ENCOUNTER → 2024-07-27 | Outpatient (CLI) | payer BC | END | disposition home or self-care (01) | LOC: RAD 13:41 | DX: Z13.820 Encounter for screening for osteoporosis (principal) | CPT/HCPCS: 77080 ==

== ENCOUNTER → 2025-01-25 | Outpatient (CLI) | payer BC | END | disposition home or self-care (01) | LOC: RAD 12:53 | DX: M18.12 Unilateral primary osteoarthritis of first carpometacarpal joint, left hand (principal); M77.31 Calcaneal spur, right foot; M25.842 Other specified joint disorders, left hand; M67.844 Other specified disorders of tendon, left hand; R06.02 Shortness of breath | CPT/HCPCS: 71046; 73140; 73650 ==

== ENCOUNTER → 2025-01-30 | Outpatient (CLI) | payer BC ==
[2025-01-30 14:14] LABS: CREATININE 0.9 mg/dL (0.6-1.0)
[2025-01-30 14:15] LABS: BASOPHILS % 1.2 % (0.0-2.0); EOSINOPHILS % 1.3 % (0.0-5.0); HEMATOCRIT. 40.6 % (36.0-48.0); HEMOGLOBIN. 12.3 g/dL (12.0-16.0); LDL CHOLESTEROL 119 mg/dL (5-100); LYMPHOCYTES % 28.2 % (20.0-50.0); MEAN PLATELET VOLUME 8.9 fl (7.4-10.4); MONOCYTES % 9.4 % (2.0-8.0); NEUTROPHILS % 59.9 % (40.0-76.0); PLATELET 218 x1000/uL (130-400); RED BLOOD CELL COUNT 6.22 mill/uL (4.2-5.4); RED CELL DISTRIBUTION WIDTH 15.6 % (11.6-14.6); TRIGLYCERIDE 77 mg/dL (0-150); UREA NITROGEN BLOOD 9 mg/dL (9-23)
[2025-01-30 14:16] LABS: ASPARTATE AMINOTRANSFERASE 22 IU/L (<34); BILIRUBIN DIRECT 0.2 mg/dL (<=3.0)
[2025-01-30 14:17] LABS: BILIRUBIN TOTAL 0.7 mg/dL (0.1-1.0); PROTEIN TOTAL 7.7 g/dL (6.0-8.3)
[2025-01-30 14:18] LABS: FOLIC ACID (FOLATE) SERUM > 20.00 ng/mL (>5.38); T4 FREE 1.46 ng/dL (0.89-1.76)
[2025-01-30 14:19] LABS: VITAMIN B12 SERUM 1406 pg/mL (211-911)
[2025-01-30 14:30] LABS: ADD RBC MORPHOLOGY YES
[2025-01-30 14:51] LABS: PLATELET ESTIMATE NORMAL
[2025-01-30 15:07] LABS: ERYTHROCYTE SEDIMENTATION RATE 2 mm/hr (0-30)
== END | disposition home or self-care (01) ==
LOC: LAB 08:10
DX: Z00.00 Encounter for general adult medical examination without abnormal findings (principal)
CPT/HCPCS: 80053; 80061; 80076; 82043; 82378; 82570; 82607; 82746; 83036; 83540; 83550; 83735; 84436; 84439; 84443; 84479; 84550; 85025; 85651; 86038; 86200; 86431; 86900

== ENCOUNTER → 2025-03-02 | Outpatient (CLI) | payer BC | END | disposition home or self-care (01) | LOC: MAMMO 08:36 | DX: Z12.31 Encounter for screening mammogram for malignant neoplasm of breast (principal); R92.333 Mammographic heterogeneous density, bilateral breasts | CPT/HCPCS: 77063; 77067 ==

== ENCOUNTER → 2025-03-06 | Outpatient (CLI) | payer BC ==
[2025-03-08 13:08] LABS: ANTI-NUCLEAR ANTIBODIES DIRECT Negative (Negative)
[2025-03-09 13:08] LABS: CYC CITRULLINATED PEP IgG/IgA 9 units (0-19)
== END | disposition home or self-care (01) ==
LOC: LAB 09:43
DX: E78.5 Hyperlipidemia, unspecified (principal); M13.0 Polyarthritis, unspecified; R73.9 Hyperglycemia, unspecified
CPT/HCPCS: 36415; 83036; 86038; 86141; 86200; 86430